=== PATIENT | female | born 1945 | race Caucasian/White ===

== ENCOUNTER 2021-07-26 13:46 | Emergency (ER) | payer MEDICARE ==
[~2021-07-26] VITALS: Ht 165.1 cm; Wt 88.5 kg
--- NOTE | 2021-07-26 14:35 | NUR ---
MOVE SHEET SUBMITTED AND CALLED FOR BED.
[2021-07-26] MEDS ORDERED: TIMO5DRO18 EACHEYE (14:37)
[2021-07-26] MEDS ORDERED: LATA2.5D15 LEFTEYE (14:37)
[2021-07-26] MEDS ORDERED: METO25TA20 PO (14:37)
[2021-07-26] MEDS ORDERED: ASPI-1420 PO (14:37)
[2021-07-26] MEDS ORDERED: BENA20TA9 PO (14:37)
[2021-07-26] MEDS ORDERED: LORA-258 PO (14:37)
[2021-07-26] MEDS ORDERED: CLOT15CR27 TP (14:37)
[2021-07-26] MEDS ORDERED: APIX5TAB PO (14:37)
[2021-07-26] MEDS ORDERED: QUET25TA PO (14:37)
[2021-07-26] MEDS ORDERED: ATOR40TA PO (14:37)
--- NOTE | 2021-07-26 14:50 | NUR ---
Dr cancino at bedside talking to Patients daughter about plan of care.
--- NOTE | 2021-07-26 14:56 | NUR ---
Patient's Daughter does not wish to proceed with medical care recommended by Dr. Luong. Patient given information related to possible complications, up to and including , which could occur as a result of leaving the hospital at this time. Patient verbalizes understanding of risks involved due to leaving against medical advice. Patient has signed AMA form.
[2021-07-26 15:26] VITALS: BP 140/64
== END 2021-07-26 14:56 | disposition left against medical advice (07) ==
LOC: ER 14:26
DX: R55 Syncope and collapse (principal); R00.1 Bradycardia, unspecified; I44.0 Atrioventricular block, first degree; F03.90 Unspecified dementia, unspecified severity, without behavioral disturbance, psychotic disturbance, mood disturbance, and anxiety; Z86.73 Personal history of transient ischemic attack (TIA), and cerebral infarction without residual deficits; Z79.899 Other long term (current) drug therapy; Z79.82 Long term (current) use of aspirin